=== PATIENT | female | born 1945 | race Caucasian/White ===

== ENCOUNTER 2016-12-25 08:56 | Inpatient (IN) | payer OTHER, MEDICARE ==
[2016-12-18 14:56] LABS: BASOPHILS % (AUTO) 0.6 % (0.0-2.0); EOSINOPHILS # (AUTO) 0.4 K/uL (0.0-0.4); EOSINOPHILS % (AUTO) 5.8 % (0.0-4.0); HEMOGLOBIN 10.7 g/dL (12.0-16.0); LYMPHOCYTES # (AUTO) 2.4 K/uL (1.0-5.5); LYMPHOCYTES % (AUTO) 33.3 % (20.5-51.5); MEAN CORPUSCULAR HEMOGLOBIN 31 pg (27-31); MEAN CORPUSCULAR HGB CONC 34 % (32-36); MEAN CORPUSCULAR VOLUME 92 fL (79.0-98.0); MONOCYTES # (AUTO) 0.6 K/uL (0.0-1.0); MONOCYTES % (AUTO) 7.9 % (1.7-9.3); NEUTROPHILS # (AUTO) 3.8 K/uL (1.8-7.7); NEUTROPHILS % (AUTO) 52.4 % (40.0-70.0); PLATELET COUNT (AUTO) 406 K/uL (130-430); RED CELL DISTRIBUTION WIDTH 12.4 % (9.0-15.0); WHITE BLOOD COUNT (AUTO) 7.2 K/uL (4.8-10.8)
[2016-12-18 14:58] LABS: BILIRUBIN,URINE NEGATIVE (NEGATIVE); BLOOD, URINE NEGATIVE (NEGATIVE); COLOR,URINE YELLOW (YELLOW); GLUCOSE,URINE NEGATIVE (NEGATIVE); KETONES,URINE NEGATIVE (NEGATIVE); LEUKOCYTE ESTERASE ,URINE 1+ (NEGATIVE); NITRITE, URINE NEGATIVE (NEGATIVE); PH,URINE 5.5 (5.0-8.0); PROTEIN URINE NEGATIVE (NEGATIVE); UROBILINOGEN,URINE 0.2 (0.2-1.0)
[2016-12-18 15:06] LABS: ANION GAP 5 (5-15); CALCIUM 9.1 mg/dL (8.4-11.0); CHLORIDE 101 mmol/L (98-107); CREATININE 1.26 mg/dL (0.55-1.30); GLUCOSE 103 mg/dL (70-99); POTASSIUM 3.4 mmol/L (3.5-5.1); SODIUM SERUM 137 mmol/L (136-145); UREA NITROGEN, BLOOD 25 mg/dL (8-21)
[2016-12-18 15:12] LABS: CLARITY/URINE SLIGHTLY HAZY (CLEAR)
[2016-12-18 15:15] LABS: RBC,URINE NONE SEEN /HPF (0-3)
[2016-12-18 15:16] LABS: BACTERIA,URINE FEW /HPF (None Seen); MUCUS,URINE 1+ /LPF (None Seen)
[~2016-12-25] VITALS: Ht 157.5 cm; Wt 65.8 kg
[~2016-12-25 08:56] MED LIST: ACET-1010 PO; ESOM40CA PO; GABA-531 PO; HYDR-1189 PO; HYDR12.585 PO; LIP20 PO; MELO15TA13 PO; METO25TA3 PO
[2016-12-25] MEDS ORDERED: VANCOMYCIN HCL 1 GM/NS PREMIX 250 ML IV ONE (09:15)
[2016-12-25] MEDS ORDERED: CEFAZOLIN 2 GM IVPB PREMIX 50 ML IV ONE ×2 (09:15→14:00)
[2016-12-25] MEDS ORDERED: FERR140T PO (10:07)
[2016-12-25] MEDS ORDERED: POLYMYXIN 500,000/BACIT.10,000 UNITS in NS IRR 1 L IR ONE (11:44)
[2016-12-25] MEDS ORDERED: LR 1,000 ML IV ONE (13:23)
[2016-12-25] MEDS ORDERED: KETOROLAC TROMETHAMINE 30 MG VIAL IM PRN (13:30)
[2016-12-25] MEDS ORDERED: ePHEDrine sulfate 50 MG/ML VIAL IVP PRN (13:30)
[2016-12-25] MEDS ORDERED: DIPHENHYDRAMINE INJ 50 MG/ML VIAL IVP PRN ×2 (13:30→14:30)
[2016-12-25] MEDS ORDERED: NALOXONE HCL 0.4 MG/ML AMP (NARCAN) IVP PRN ×2 (13:30→16:15)
[2016-12-25] MEDS ORDERED: NALBUPHINE HCL 10 MG/ML AMP IVP PRN (13:30)
[2016-12-25] MEDS ORDERED: ONDANSETRON HCL 4 MG/2 ML VIAL IVP PRN ×3 (13:30→14:30)
[2016-12-25] MEDS ORDERED: fentaNYL CITRATE/PF 100 MCG/2 ML AMP IVP PRN (13:30)
[2016-12-25] MEDS ORDERED: MIDAZOLAM HCL 5 MG/5 ML VIAL ONE (14:00)
[2016-12-25] MEDS ORDERED: METOCLOPRAMIDE HCL 10 MG/2 ML VIAL ONE (14:00)
[2016-12-25] MEDS ORDERED: VANCOMYCIN HCL 1000 MG/VIAL IV ONE (14:00)
[2016-12-25] MEDS ORDERED: DEXAMETHASONE SOD PHOSPHATE 4 MG/ML VIAL ONE (14:00)
[2016-12-25] MEDS ORDERED: fentaNYL CITRATE/PF 100 MCG/2 ML AMP ONE (14:00)
[2016-12-25] MEDS ORDERED: PROPOFOL 200MG/ 20ML VIAL (DIPRIVAN) IV ONE (14:00)
[2016-12-25] MEDS ORDERED: MORPHINE SULFATE 10MG/10ML PF AMP ONE (14:00)
[2016-12-25] MEDS ORDERED: SEVOFLURANE 15 MIN GAS INH ONE (14:00)
[2016-12-25] MEDS ORDERED: KETOROLAC TROMETHAMINE 30 MG VIAL ONE (14:00)
[2016-12-25] MEDS ORDERED: LR 1,000 ML IV.SOLN IV ONE (14:00)
[2016-12-25] MEDS ORDERED: ACETAMINOPHEN 500 MG TABLET PO PRN ×2 (14:30→14:45)
[2016-12-25] MEDS ORDERED: MILK OF MAGNESIA 30 ML UDC PO PRN (14:30)
[2016-12-25] MEDS ORDERED: HYDROcodone/ACETAMIN 5-325 MG TAB (NORCO/ VICODIN) PO PRN (14:30)
[2016-12-25 15:15] VITALS: BP 113/67; PULSE 64; RESP 15; TEMP 97.4; O2SAT 98
--- NOTE | 2016-12-25 15:15 | NUR ---
RN OPENING NOTES RECEIVED REPORT FROM RECOVERY ROOM, STATUS POST-OP RIGHT TOTAL HIP REPLACEMENT. DRESSING DRY AND INTACT, ICE PACKS IN PLACE. ABDUCTOR PILLOW PLACED PROPERLY. PT ABLE TO MOVE TOES BILATERALLY, NO S/S OF DEFICIENCIES. EDUCATED PT NOT TO ABDUCT OR ROTATE RIGHT LEG, AND TO MONITOR AND REPORT PAIN. BED IN LOWEST POSITION, BED ALARM ON, AND CALL LIGHT WITHIN REACH.
[2016-12-25 15:29] VITALS: BP 113/67; PULSE 64; RESP 16; TEMP 95.7; O2SAT 98
--- NOTE | 2016-12-25 15:30 | NUR ---
PT EDUCATION EDUCATED ON USE OF INCENTIVE SPIROMETER
--- NOTE | 2016-12-25 15:49 | NUR ---
Consult Order received for a med management with Dr Mittal. Call was placed to his office [phone], spoke with Tucker. Will follow up as needed.
[2016-12-25] MEDS ORDERED: HYDROMORPHONE PCA 10 mg/50 mL IV PRN (16:15)
[2016-12-25 16:24] VITALS: BP 113/67; PULSE 64
[2016-12-25] MEDS: D5/0.45 NS 1,000 ML IV SCH ×2 (16:42→20:56)
--- NOTE | 2016-12-25 16:52 | NUR ---
RN ROUNDS PT RESTING IN BED, FAMILY AT BEDSIDE. PT ABLE TO TOLERATE WATER. BED IN LOWEST POSITION AND CALL LIGHT WITHIN REACH
[2016-12-25] MEDS ORDERED: TRANEXAMIC ACID 1,000 MG in NS 50 ML IV ONE (17:30)
[2016-12-25] MEDS: KETOROLAC TROMETHAMINE 15 MG VIAL IVP SCH (18:19)
--- NOTE | 2016-12-25 18:46 | NUR ---
RN CLOSING NOTE PT RESTING IN BED, TALKING TO A FRIEND AT BEDSIDE. EDUCATED PT TYPEWRITER MECHANIC LIGHT AND HOW TO DIAL THE RN DIRECT EXTENSION WITH THE PHONE. VS STABLE AND PT STATES SHE IS NOT IN PAIN. BED IN LOWEST POSITION, BED ALARM SET AND CALL LIGHT WITHIN REACH
[2016-12-25 20:00] VITALS: BP 107/66; PULSE 84; RESP 18; TEMP 97.5; O2SAT 93
--- NOTE | 2016-12-25 20:00 | NUR ---
Initial PM Note Pt was received lying in bed fully AAO x4. No acute distress noted. Rt hip dressing is clean, dry and intact with neurovascular checks to BLE WNL. IV site in LFA is without any signs of infiltration. Pt was instructed to use IS 10X Q1hr WA and pt verbalized understanding. Pt is able to use IS up to 1500ml volume. Fall and safety precautions are in place. Pt was instructed to call for assistance as needed and pt verbalized understanding. Bed is in the lowest and locked positions. Call light is with pt. Will continue to monitor pt.
[2016-12-25] MEDS: GABAPENTIN 300 MG CAPSULE PO SCH (20:55)
[2016-12-25] MEDS: SENNOSIDES 8.6 MG TABLET PO SCH (20:55)
[2016-12-25] MEDS: DIPHENHYDRAMINE HCL 25 MG CAPSULE PO PRN (20:55)
--- NOTE | 2016-12-25 20:55 | NUR ---
Itching Benadryl 25mg given po per pt's request for c/o itching on abdomen and both feet with relief. No hives or difficulty breathing noted. Skin lotion also applied to pt's abdomen and both feet with good effect.
--- NOTE | 2016-12-25 22:00 | NUR ---
Rounds Pt is resting comfortably in bed. IVF is infusing well and call light is with pt. No c/o pain or discomfort. Rt hip dressing remains dry and intact with ice packs in place.
--- NOTE | 2016-12-26 | NUR ---
Rounds Pt is resting quietly in bed and denies pain or discomfort. DOCUMENT REVIEWER Dilaudid not yet started since it is not needed. Will give scheduled IV Toradol. IVF is infusing well in Lt wrist. Call light is with pt.
[2016-12-26] MEDS: KETOROLAC TROMETHAMINE 15 MG VIAL IVP SCH ×2 (00:03→06:05)
[2016-12-26 00:10] VITALS: BP 101/53; PULSE 80; RESP 18; TEMP 96.5; O2SAT 94
--- NOTE | 2016-12-26 02:00 | NUR ---
Rounds Pt is sleeping without any distress noted. IVF is infusing well and call light is with pt.
--- NOTE | 2016-12-26 04:00 | NUR ---
Rounds Pt is sleeping comfortably in bed. Call light is with pt.
[2016-12-26] MEDS: D5/0.45 NS 1,000 ML IV SCH ×2 (04:39→11:46)
--- NOTE | 2016-12-26 05:30 | NUR ---
Rounds Pt is sleeping comfortably in bed. IVF is infusing well.
[2016-12-26 06:17] VITALS: BP 111/52; PULSE 67; RESP 18; TEMP 96.8; O2SAT 98
[2016-12-26 06:32] LABS: ANION GAP 4 (5-15); CALCIUM 8.2 mg/dL (8.4-11.0); CHLORIDE 102 mmol/L (98-107); CREATININE 0.85 mg/dL (0.55-1.30); GLUCOSE 158 mg/dL (70-99); POTASSIUM 3.1 mmol/L (3.5-5.1); SODIUM SERUM 136 mmol/L (136-145); UREA NITROGEN, BLOOD 14 mg/dL (8-21)
[2016-12-26 06:43] LABS: EOSINOPHILS % (AUTO) 0.1 % (0.0-4.0)
--- NOTE | 2016-12-26 07:00 | NUR ---
Closing Note Pt is resting comfortably in bed. All pt's needs were attended to. No fall or injury noted this shift. Will endorse to day shift nurse.
[2016-12-26 07:03] LABS: BASOPHILS % (AUTO) 0.5 % (0.0-2.0); HEMATOCRIT 23.3 % (36-48); LYMPHOCYTES # (AUTO) 0.8 K/uL (1.0-5.5); LYMPHOCYTES % (AUTO) 10.2 % (20.5-51.5); MEAN CORPUSCULAR HEMOGLOBIN 31 pg (27-31); MEAN CORPUSCULAR HGB CONC 34 % (32-36); MEAN CORPUSCULAR VOLUME 90 fL (79.0-98.0); MONOCYTES # (AUTO) 0.7 K/uL (0.0-1.0); NEUTROPHILS # (AUTO) 6.4 K/uL (1.8-7.7); NEUTROPHILS % (AUTO) 80.2 % (40.0-70.0); PLATELET COUNT (AUTO) 329 K/uL (130-430); RED BLOOD CELL COUNT(AUTO) 2.58 MIL/uL (4.2-6.2); RED CELL DISTRIBUTION WIDTH 12.9 % (9.0-15.0); WHITE BLOOD COUNT (AUTO) 7.9 K/uL (4.8-10.8)
--- NOTE | 2016-12-26 07:30 | NUR ---
RN OPENING NOTES PT AWAKE AND A/O X4. PT STATED SHE IS FREE OF PAIN AND COMFORTABLE. VS STABLE. BED IN LOWEST POSITION, BED ALARM SET AND CALL LIGHT WITHIN REACH
[2016-12-26 08:00] VITALS: BP 102/78; PULSE 77; RESP 17; TEMP 97.7; O2SAT 98
[2016-12-26] MEDS: HYDROCHLOROTHIAZIDE 12.5 MG CAPSULE (HCTZ) PO SCH (08:50)
[2016-12-26] MEDS: ATORVASTATIN 20 MG TABLET PO SCH (08:51)
[2016-12-26] MEDS: MULTIVITAMINS TAB 1 TABLET PO SCH (08:51)
[2016-12-26] MEDS: GABAPENTIN 300 MG CAPSULE PO SCH ×2 (08:51→20:38)
[2016-12-26] MEDS: PANTOPRAZOLE SODIUM 40 MG TAB PO SCH (08:52)
[2016-12-26] MEDS: FERROUS SULFATE 140 MG TABLET.ER PO SCH (08:52)
[2016-12-26] MEDS: ASCORBIC ACID 500 MG TABLET PO SCH ×2 (08:53→20:38)
[2016-12-26] MEDS ORDERED: METOPROLOL SUCCINATE 25 MG TAB.SR.24H (TOPROL XL) PO SCH (09:00)
[2016-12-26] MEDS: HYDROcodone/ACETAMIN 10-325 MG TAB PO PRN ×3 (09:02→18:42)
--- NOTE | 2016-12-26 10:00 | NUR ---
RN ROUNDS PT WAS ASSISTED TO CHAIR DURING HER PHYSICAL THERAPY SESSION. PT STATED HER PAIN IS TOLERABLE AND SHE IS COMFORTABLE. DAUGHTER AT BEDSIDE. CALL LIGHT WITHIN REACH
[2016-12-26] MEDS ORDERED: POTASSIUM CHLORIDE 40 MEQ in NS 250 ML IV ONE (10:15)
[2016-12-26] MEDS: RIVAROXABAN 10 MG TABLET PO SCH (10:40)
[2016-12-26 12:00] VITALS: BP 119/56; PULSE 74; RESP 18; TEMP 97.7; O2SAT 96
--- NOTE | 2016-12-26 12:06 | NUR ---
RN ROUNDS PT SITTING IN CHAIR AND STATED HER PAIN IS TOLERABLE AND SHE IS COMFORTABLE. AT BEDSIDE. CALL LIGHT WITHIN REACH
--- NOTE | 2016-12-26 14:11 | NUR ---
Assisted pt to the bathroom, placed commode above toilet for elevation. Pt tolerating well.
[2016-12-26 16:00] VITALS: BP 111/65; PULSE 76; RESP 21; TEMP 97.7; O2SAT 97
--- NOTE | 2016-12-26 16:00 | NUR ---
Rounds Assisted pt to the bathroom, tolerated well. Pt back in bed and abductor pillow in place. Family at bedside. Pt continues to infuse IVF, Rody complete. Call light in reach. Will cont to monitor. Encouraged patient to call for assistance when getting up. She stated she will.
--- NOTE | 2016-12-26 18:07 | NUR ---
RN CLOSING NOTE PT SITTING IN BED, EATING DINNER. HER DAUGHTER IS PRESENT AT BED SIDE. PT AWARE OF SCHEDULED BLOOD PRODUCT REPLACEMENT AT 1900 AND PAPERWORK AND CONSENT COMPLETED. PT STATES SHE IS COMFORTABLE WITH NO PAIN. BED IN LOWEST POSITION, BED ALARM SET, AND CALL LIGHT WITHIN REACH
--- NOTE | 2016-12-26 19:50 | NUR ---
Initial Note Patient in bed at this time resting, respirations even and unlabored. Patient is alert and oriented. No acute distress noted at this time. Patient states pain is being well managed with [place] at this time. IV site patent with no signs or symptoms of infiltration noted at this time. Educated patient on incentive spirometer, patient verbalized understanding. Educated patent on using 10 times per hour while awake. Patient has burton with yellow urine draining to gravity. Call light in hand. Fall and safety precautions in place. Will continue to monitor.
[2016-12-26 20:00] VITALS: BP 115/45; PULSE 80; RESP 16; TEMP 98; O2SAT 96
[2016-12-26] MEDS: DIPHENHYDRAMINE HCL 25 MG CAPSULE PO PRN (20:38)
[2016-12-26] MEDS: SENNOSIDES 8.6 MG TABLET PO SCH (20:38)
--- NOTE | 2016-12-26 21:56 | NUR ---
BT INITIATION: Consent signed per Patient agreeing to administration of blood. Blood has been type and crossmatched. Blood sent from blood bank. Information on unit of blood checked against patient wristband at bedside by two nurses. All information matches. Patient or responsible libertarian informed of potential complications associated with blood transfusion. Informed of possible transfusion reaction symptoms. Aware of need to notify nurse at once of itching, shortness of breath, flushing, feeling of impending doom, or other symptoms not previously present. Vital signs taken within 5 minutes prior to initiation of transfusion. RN will remain with patient for first 15 minutes of transfusion at which time vital signs will be re-assessed.
--- NOTE | 2016-12-26 22:11 | NUR ---
15 into blood transfusion 15 mins into blood transfusion patient denies any symptoms of flank pain, shortness of breath , itching, or flushed feeling. Patients vitals are stable at this time. Patient shows no symptoms of reaction. Iv site patent with no signs or symptoms of infiltration noted. Call light in hand. Fall and safety precautions in place. Will continue to monitor.
--- NOTE | 2016-12-26 23:55 | NUR ---
RN ROUNDS Patient in bed at this time resting with eyes closed. Patient in no apparent pain or discomfort at this time, no facial grimacing noted. Blood transfusion still infusing and patient continues to tolerate well. Call light in hand. Fall and safety precautions in place. Will continue to monitor.
[2016-12-27] MEDS: HYDROcodone/ACETAMIN 10-325 MG TAB PO PRN ×5 (01:03→20:35)
--- NOTE | 2016-12-27 01:09 | NUR ---
Post Blood Transfusion Blood transfusion ended. Patient tolerated well. Patient showed no signs or symptoms of adverse reaction to blood. Vital signs remain stable. Patient C?O pain on the effected hip. Administered pain medication as ordered, helped patient reposition. Patient tolerated well. Call light in hand. Fall and safety precautions in place. Will continue to monitor.
[2016-12-27] MEDS: D5/0.45 NS 1,000 ML IV SCH ×2 (01:36→07:26)
--- NOTE | 2016-12-27 02:59 | NUR ---
RN ROUNDS Patient in bed at this time resting with eyes closed. Respirations even and unlabored. No acute distress noted at this time. Patient denies any pain or discomfort at this time. Call light in hand. Fall and safety precautions in place. Will continue to monitor.
--- NOTE | 2016-12-27 04:48 | NUR ---
RN ROUNDS Patient in bed at this time resting, respirations even and unlabored. No acute distress noted at this time. Patient in no apparent pain or discomfort at this time, no facial grimacing noted. Call light in hand. Fall and safety precautions in place. Will continue to monitor.
[2016-12-27 06:13] VITALS: BP 118/50; PULSE 70; RESP 18; TEMP 97.9; O2SAT 93
[2016-12-27 06:27] LABS: ANION GAP 2 (5-15); CALCIUM 7.9 mg/dL (8.4-11.0); CHLORIDE 107 mmol/L (98-107); CREATININE 0.91 mg/dL (0.55-1.30); GLUCOSE 109 mg/dL (70-99); POTASSIUM 3.4 mmol/L (3.5-5.1); SODIUM SERUM 139 mmol/L (136-145)
--- NOTE | 2016-12-27 06:55 | NUR ---
Closing Note Patient in bed at this time resting. Respirations even and unlabored. No acute distress noted at this time. Discontinued Ibanez, catheter tip in tact, patient tolerated well. All due meds given, all needs met. Call light in hand. Fall and safety precautions in place. Will continue to monitor. Addendum: 12/27/16 at 0657 by Charity Hernandez RN Will endorse to day shift nurse.
[2016-12-27 07:01] LABS: BASOPHILS % (AUTO) 0.5 % (0.0-2.0); EOSINOPHILS # (AUTO) 0.3 K/uL (0.0-0.4); EOSINOPHILS % (AUTO) 3.8 % (0.0-4.0); HEMATOCRIT 26.1 % (36-48); HEMOGLOBIN 8.7 g/dL (12.0-16.0); LYMPHOCYTES # (AUTO) 1.5 K/uL (1.0-5.5); LYMPHOCYTES % (AUTO) 20.2 % (20.5-51.5); MEAN CORPUSCULAR HEMOGLOBIN 31 pg (27-31); MEAN CORPUSCULAR HGB CONC 33 % (32-36); MEAN CORPUSCULAR VOLUME 92 fL (79.0-98.0); MONOCYTES # (AUTO) 0.8 K/uL (0.0-1.0); MONOCYTES % (AUTO) 10.1 % (1.7-9.3); NEUTROPHILS % (AUTO) 65.4 % (40.0-70.0); PLATELET COUNT (AUTO) 315 K/uL (130-430); RED BLOOD CELL COUNT(AUTO) 2.85 MIL/uL (4.2-6.2); RED CELL DISTRIBUTION WIDTH 12.9 % (9.0-15.0); WHITE BLOOD COUNT (AUTO) 7.6 K/uL (4.8-10.8)
[2016-12-27 07:02] LABS: UREA NITROGEN, BLOOD 10 mg/dL (8-21)
[2016-12-27 08:00] VITALS: BP 118/66; PULSE 77; RESP 18; TEMP 97.8; O2SAT 94
--- NOTE | 2016-12-27 08:00 | NUR ---
Initial Note Patient A/O x 4. Respirations even and unlabored, denies difficulty breathing at this time. IV access patent. Reviewed hip precautions, patient acknowledged understanding. Encouraged use of incentive spirometer, patient stated she will use IS correctly. No active bleeding noted to right hip dressing. Use of call light reviewed with patient. Fall and safety precautions in place.
--- NOTE | 2016-12-27 08:24 | NUR ---
Notes Informed case management of Dr. Kuhn's order to be called by case management.
--- NOTE | 2016-12-27 08:45 | NUR ---
DISCHARGE PLANNING DC planning to [facility]. Faxed referral Ext:[phone] [phone]. Will follow up.
[2016-12-27] MEDS: FERROUS SULFATE 140 MG TABLET.ER PO SCH ×2 (09:00→09:48)
[2016-12-27] MEDS ORDERED: POTASSIUM CHLORIDE 20 MEQ TAB.PRT.SR PO ONE (09:30)
[2016-12-27] MEDS: PANTOPRAZOLE SODIUM 40 MG TAB PO SCH (09:47)
[2016-12-27] MEDS: ATORVASTATIN 20 MG TABLET PO SCH (09:47)
[2016-12-27] MEDS: ASCORBIC ACID 500 MG TABLET PO SCH ×2 (09:48→20:35)
[2016-12-27] MEDS: RIVAROXABAN 10 MG TABLET PO SCH (09:48)
[2016-12-27] MEDS: MULTIVITAMINS TAB 1 TABLET PO SCH (09:48)
[2016-12-27] MEDS: GABAPENTIN 300 MG CAPSULE PO SCH ×2 (09:48→20:35)
[2016-12-27] MEDS: HYDROCHLOROTHIAZIDE 12.5 MG CAPSULE (HCTZ) PO SCH (09:49)
--- NOTE | 2016-12-27 10:27 | NUR ---
Nutrition Update Zen Scale 17 noted. Pt admitted for unilateral primary osteoarthritis R hip. Diet: regular BMI: 26.5 kg/m2 RD to follow per nutrition care standards.
[2016-12-27] MEDS ORDERED: COMMUNICATION ORDER XX ONE (11:30)
[2016-12-27 13:33] VITALS: BP 119/58; PULSE 71; RESP 17; TEMP 98.6; O2SAT 99
--- NOTE | 2016-12-27 13:51 | NUR ---
Notes Patient ambulating in hallway with use of front wheel walker and PT assisting. Gait steady. no acute distress noted.
--- NOTE | 2016-12-27 14:41 | NUR ---
Notes Dr. Kuhn has seen patient and changed dressing. No new orders given.
--- NOTE | 2016-12-27 15:00 | NUR ---
PHYSICAL THERAPY CO-SIGN The Physical Therapy Progress Notes documented by Fishing Worker have been reviewed. 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 Plan: continue PT as per plan of care. Addendum: 12/27/16 at 1552 by Nereida Aj PT Amended: Links added.
[2016-12-27 15:30] VITALS: BP 102/72; PULSE 79; RESP 16; TEMP 97.1; O2SAT 96
--- NOTE | 2016-12-27 18:06 | NUR ---
Closing Notes Patient needs met throughout shift. Complaints of pain addressed per MD orders. No signs of bleeding or infection noted. Correct use of incentive spirometer demonstrated. Hip precautions maintained, abductor pillow on while in bed. Denied numbness and tingling to bilateral lower extremities throughout shift. Will continue to monitor until patient care is endorsed to oncoming shift nurse.
[2016-12-27 20:00] VITALS: BP 125/76; PULSE 75; RESP 18; TEMP 97.6; O2SAT 97
--- NOTE | 2016-12-27 20:00 | NUR ---
ROUNDS PATIENT IN BED, WATCHING TV, VITALS STABLE, DENIES ANY PAIN AT THIS TIME. ASSESSMENT DONE AND DOCUMENTED. SEE FLOWSHEET. FAMILY AT THE BEDSIDE. NEEDS ATTENDED TO. SAFETY AND FALL PRECAUTION MEASURES IN PLACED. BED IN LOW AND LOCKED POSITION. CALL LIGHT PLACED WITH PATIENT.
[2016-12-27] MEDS: SENNOSIDES 8.6 MG TABLET PO SCH (20:37)
[2016-12-27] MEDS ORDERED: METOPROLOL SUCCINATE 25 MG TAB.SR.24H (TOPROL XL) PO SCH (21:00)
--- NOTE | 2016-12-27 21:10 | NUR ---
MEDICATION DUE MEDICATIONS GIVEN SCHEDULED, TOLERATED WELL. WILL CONTINUE TO MONITOR.
--- NOTE | 2016-12-28 | NUR ---
PATIENT RESTING: Patient resting quietly. No acute distress noted. Vital signs within normal range.
--- NOTE | 2016-12-28 02:00 | NUR ---
ROUNDS ASLEEP, NO SOB NOTED, WILL CONTINUE TO MONITOR.
--- NOTE | 2016-12-28 04:00 | NUR ---
PATIENT RESTING: Patient resting quietly. No acute distress noted. Vital signs within normal range.
[2016-12-28 04:26] VITALS: BP 130/71; PULSE 74; RESP 16; TEMP 97.2; O2SAT 99
[2016-12-28] MEDS: HYDROcodone/ACETAMIN 10-325 MG TAB PO PRN ×3 (05:23→17:13)
[2016-12-28 06:40] LABS: BASOPHILS % (AUTO) 0.5 % (0.0-2.0); EOSINOPHILS # (AUTO) 0.3 K/uL (0.0-0.4); EOSINOPHILS % (AUTO) 3.9 % (0.0-4.0); HEMATOCRIT 27.8 % (36-48); HEMOGLOBIN 9.1 g/dL (12.0-16.0); LYMPHOCYTES # (AUTO) 1.2 K/uL (1.0-5.5); LYMPHOCYTES % (AUTO) 16.9 % (20.5-51.5); MEAN CORPUSCULAR HEMOGLOBIN 30 pg (27-31); MEAN CORPUSCULAR HGB CONC 33 % (32-36); MEAN CORPUSCULAR VOLUME 92 fL (79.0-98.0); MONOCYTES # (AUTO) 0.7 K/uL (0.0-1.0); MONOCYTES % (AUTO) 9.9 % (1.7-9.3); NEUTROPHILS # (AUTO) 5.1 K/uL (1.8-7.7); NEUTROPHILS % (AUTO) 68.8 % (40.0-70.0); PLATELET COUNT (AUTO) 354 K/uL (130-430); RED BLOOD CELL COUNT(AUTO) 3.03 MIL/uL (4.2-6.2); RED CELL DISTRIBUTION WIDTH 12.5 % (9.0-15.0); WHITE BLOOD COUNT (AUTO) 7.3 K/uL (4.8-10.8)
--- NOTE | 2016-12-28 06:50 | NUR ---
CLOSING NOTES PATIENT AWAKE, VITALS STABLE, ALL NEEDS ATTENDED TO. CALL LIGHT PLACED WITHIN REACH.
[2016-12-28 07:00] LABS: ANION GAP 5 (5-15); CALCIUM 8.2 mg/dL (8.4-11.0); CHLORIDE 104 mmol/L (98-107); CREATININE 0.89 mg/dL (0.55-1.30); GLUCOSE 101 mg/dL (70-99); POTASSIUM 3.8 mmol/L (3.5-5.1); SODIUM SERUM 138 mmol/L (136-145); UREA NITROGEN, BLOOD 11 mg/dL (8-21)
--- NOTE | 2016-12-28 08:00 | NUR ---
Patient A/O x 4. No s/s of distress noted. IV access patent. Reviewed hip precautions, patient acknowledged understanding. Incentive spirometer at bedside, patient stated she will use IS correctly. SR on monitor. No active bleeding noted to right hip dressing. Call light in place, instructed patient to use it for needs, bed at lowest position, will continue to monitor.
[2016-12-28] MEDS: PANTOPRAZOLE SODIUM 40 MG TAB PO SCH (08:56)
[2016-12-28] MEDS: ASCORBIC ACID 500 MG TABLET PO SCH (08:56)
[2016-12-28] MEDS: RIVAROXABAN 10 MG TABLET PO SCH (08:56)
[2016-12-28] MEDS: HYDROCHLOROTHIAZIDE 12.5 MG CAPSULE (HCTZ) PO SCH (08:56)
[2016-12-28] MEDS: MULTIVITAMINS TAB 1 TABLET PO SCH (08:57)
[2016-12-28] MEDS: ATORVASTATIN 20 MG TABLET PO SCH (08:57)
[2016-12-28] MEDS: GABAPENTIN 300 MG CAPSULE PO SCH (08:57)
[2016-12-28] MEDS: FERROUS SULFATE 140 MG TABLET.ER PO SCH (08:58)
--- NOTE | 2016-12-28 09:45 | NUR ---
PATIENT IS TAKEN TO PHYSICAL THERAPY WITH PT. PATIENT TOLERATED WELL, NO SIGNS OF DISTRESS NOTED.
--- NOTE | 2016-12-28 11:45 | NUR ---
DC PLANNING: RECEIVED A DC ORDER FROM DR. K[facility] BED AVAIL[facility] AFTER 1800, PLS GIVE REPORT TO RN TEL# [phone]. PT WILL BE FOLLOWED BY DR. SEVILLA. ARRANGED TRANSPORTATION FOR [address] [facility] TEL# . PACKET AT THE NURSE'S STATION, DEJA PHAN INFORMED. PATIENT AGREEABLE TO THE TRANSFER.
[2016-12-28 12:00] VITALS: BP 118/59; PULSE 69
[2016-12-28] MEDS ORDERED: RIVA10TA PO (12:12)
[2016-12-28 12:51] VITALS: BP 118/59; PULSE 69; RESP 16; TEMP 97.2; O2SAT 94
--- NOTE | 2016-12-28 14:00 | NUR ---
PATIENT'S FAMILY AT BEDSIDE. CALL LIGHT IN PLACE, WILL CONTINUE TO MONITOR.
--- NOTE | 2016-12-28 16:00 | NUR ---
PHYSICAL THERAPY CO-SIGN The Physical Therapy Progress Notes documented by Customer Success Advocate have been reviewed. I CONCUR W/PEDIATRIC SURGEON NOTE Reviewed/Co-Signed by: Ni Curry PT Documentation Done by: JD TIJERINA PTA Addendum: 12/30/16 at 0829 by Ni Curry PT Amended: Links added.
--- NOTE | 2016-12-28 16:00 | NUR ---
PATIENT IS ASLEEP, SR ON MONITOR, NO SIGNS OF DISTRESS NOTED.
[2016-12-28 16:55] VITALS: BP 113/62; PULSE 68; RESP 16; TEMP 97.8; O2SAT 97
[2016-12-28 17:44] VITALS: BP 126/73; PULSE 76; RESP 17; TEMP 96; O2SAT 98
--- NOTE | 2016-12-28 19:21 | NUR ---
Transportation Follow-up called [facility] ambulance, dialed . s/w Deandre, stated that transport should arrive within a few minutes.
--- NOTE | 2016-12-28 20:06 | NUR ---
NOTES PATIENT DISCHARGED TO [facility] ORDERED VIA AMBULANCE WITH STABLE VITAL SIGNS. DENIES ANY PAIN AND DISCOMFORT AT THIS TIME. TRANSITION OF CARE INSTRUCTIONS GIVEN BY A.M. NURSE TO PATIENT AND FAMILY.
== END 2016-12-28 20:05 | DRG 470 ==
LOC: SMU 08:56 → STU 15:30
PROVIDERS: ADMIT Orthopaedic Surgery; ATTEND Orthopaedic Surgery
PROC: 0SR90JZ Replacement of Right Hip Joint with Synthetic Substitute, Open Approach (ICD-10-PCS; principal; 2016-12-25 12:00)
PROC: 30233N1 Transfusion of Nonautologous Red Blood Cells into Peripheral Vein, Percutaneous Approach (ICD-10-PCS; 2016-12-26)
DX: M16.11 Unilateral primary osteoarthritis, right hip (principal); D62 Acute posthemorrhagic anemia; M65.9 Synovitis and tenosynovitis, unspecified; I10 Essential (primary) hypertension; E78.00 Pure hypercholesterolemia, unspecified; E78.5 Hyperlipidemia, unspecified; G62.9 Polyneuropathy, unspecified; K21.9 Gastro-esophageal reflux disease without esophagitis; S93.501A Unspecified sprain of right great toe, initial encounter; M19.071 Primary osteoarthritis, right ankle and foot; M48.06 Spinal stenosis, lumbar region; S33.5XXA Sprain of ligaments of lumbar spine, initial encounter; Z88.1 Allergy status to other antibiotic agents; Z79.1 Long term (current) use of non-steroidal anti-inflammatories (NSAID); Z79.899 Other long term (current) drug therapy
CPT/HCPCS: 36415; 71020-TC; 72170-TC; 73510-TC; 80048; 81000-TC; 85025; 86886; 86890; 86900; 86901; 86920; 87081; 87086; 88304; 88311; 97110-GP; 97116-GP; 97530-GP; C1776; J0690; J1100; J1885; J2250; J2274; J2704; J2765; J3010; J3370; J3480; J3490; J7040; J7050; J7120; Q0163

== ENCOUNTER 2017-03-24 07:29 | Outpatient (CLI) | payer OTHER, MEDICARE ==
[~2017-03-24 07:29] MED LIST changes: +FERR140T PO; -MELO15TA13 PO; +RIVA10TA PO
[2017-03-24 08:07] LABS: ALANINE AMINOTRANSFERASE 23 U/L (12-78); ASPARTATE AMINOTRANSFERASE 18 U/L (10-37); CALCIUM 9.3 mg/dL (8.4-11.0); CHLORIDE 101 mmol/L (98-107); CHOLESTEROL 194 mg/dL (<200); CREATININE 0.99 mg/dL (0.55-1.30); GLUCOSE 97 mg/dL (70-99); HDL CHOLESTEROL 55 mg/dL (>55); LDL CHOLESTEROL 104 mg/dL (<100); TOTAL BILIRUBIN 0.4 mg/dL (0.0-1.0); TOTAL PROTEIN, SERUM 7.3 g/dL (6.4-8.3); TRIGLYCERIDES 186 mg/dL (30-150); UREA NITROGEN, BLOOD 16 mg/dL (8-21)
[2017-03-24 09:03] LABS: ANION GAP 6 (5-15); SODIUM SERUM 139 mmol/L (136-145)
== END 2017-03-24 20:50 | disposition home or self-care (01) ==
LOC: SLB 07:29
PROVIDERS: ATTEND Internal Medicine
DX: I10 Essential (primary) hypertension (principal); E78.00 Pure hypercholesterolemia, unspecified; R73.9 Hyperglycemia, unspecified
CPT/HCPCS: 36415; 80053; 80061; 83036

== ENCOUNTER 2017-07-10 15:41 | Outpatient (CLI) | payer OTHER, MEDICARE ==
[2017-07-10 16:58] LABS: BILIRUBIN,URINE NEGATIVE (NEGATIVE); BLOOD, URINE NEGATIVE (NEGATIVE); CLARITY/URINE CLEAR (CLEAR); COLOR,URINE YELLOW (YELLOW); GLUCOSE,URINE NEGATIVE (NEGATIVE); KETONES,URINE NEGATIVE (NEGATIVE); LEUKOCYTE ESTERASE ,URINE NEGATIVE (NEGATIVE); NITRITE, URINE NEGATIVE (NEGATIVE); PH,URINE 5.5 (5.0-8.0); PROTEIN URINE NEGATIVE (NEGATIVE); UROBILINOGEN,URINE 0.2 (0.2-1.0)
== END 2017-07-10 19:22 | disposition home or self-care (01) ==
LOC: SLB 15:41
PROVIDERS: ATTEND Orthopaedic Surgery
DX: Z79.1 Long term (current) use of non-steroidal anti-inflammatories (NSAID) (principal)
CPT/HCPCS: 36415; 81003; 82565-TC; 83051; 84450-TC; 84460-TC

== ENCOUNTER 2017-12-31 08:05 | Outpatient (CLI) | payer OTHER, MEDICARE ==
[2017-12-31 09:42] LABS: ANION GAP 5 (5-15); CALCIUM 9.4 mg/dL (8.4-11.0); CHLORIDE 104 mmol/L (98-107); CREATININE 0.95 mg/dL (0.55-1.30); GLUCOSE 104 mg/dL (70-99); SODIUM SERUM 139 mmol/L (136-145); UREA NITROGEN, BLOOD 21 mg/dL (8-21)
[2017-12-31 09:45] LABS: ALANINE AMINOTRANSFERASE 25 U/L (12-78); ASPARTATE AMINOTRANSFERASE 16 U/L (10-37); CHOLESTEROL 184 mg/dL (<200); HDL CHOLESTEROL 54 mg/dL (>55); LDL CHOLESTEROL 105 mg/dL (<100); TOTAL BILIRUBIN 0.5 mg/dL (0.0-1.0); TRIGLYCERIDES 112 mg/dL (30-150)
== END 2017-12-31 20:57 | disposition home or self-care (01) ==
LOC: SLB 08:05
PROVIDERS: ATTEND Internal Medicine
DX: E78.00 Pure hypercholesterolemia, unspecified (principal); I10 Essential (primary) hypertension; R31.29 Other microscopic hematuria; R73.9 Hyperglycemia, unspecified
CPT/HCPCS: 36415; 80053; 80061; 83036

== ENCOUNTER 2018-05-11 14:28 | Outpatient (CLI) | payer OTHER, MEDICARE ==
[~2018-05-11 14:28] MED LIST changes: -ACET-1010 PO; +ACET-2634 PO
[2018-05-11 15:07] LABS: BILIRUBIN,URINE NEGATIVE (NEGATIVE); BLOOD, URINE NEGATIVE (NEGATIVE); CLARITY/URINE CLEAR (CLEAR); COLOR,URINE YELLOW (YELLOW); GLUCOSE,URINE NEGATIVE (NEGATIVE); KETONES,URINE NEGATIVE (NEGATIVE); LEUKOCYTE ESTERASE ,URINE NEGATIVE (NEGATIVE); NITRITE, URINE NEGATIVE (NEGATIVE); PH,URINE 6.5 (5.0-8.0); PROTEIN URINE NEGATIVE (NEGATIVE); UROBILINOGEN,URINE 0.2 (0.2-1.0)
[2018-05-11 15:45] LABS: CREATININE 1.11 mg/dL (0.55-1.30)
== END 2018-05-11 21:13 | disposition home or self-care (01) ==
LOC: SLB 14:28
PROVIDERS: ATTEND Orthopaedic Surgery
DX: I10 Essential (primary) hypertension (principal); E78.00 Pure hypercholesterolemia, unspecified; Z79.1 Long term (current) use of non-steroidal anti-inflammatories (NSAID); Z79.899 Other long term (current) drug therapy; Z88.8 Allergy status to other drugs, medicaments and biological substances
CPT/HCPCS: 36415; 81003; 82565-TC; 83051; 84450-TC; 84460-TC

== ENCOUNTER 2019-01-01 09:51 | Outpatient (CLI) | payer OTHER, MEDICARE ==
[~2019-01-01 09:51] MED LIST changes: -FERR140T PO; +FERR140T2 PO
[2019-01-01 10:36] LABS: BILIRUBIN,URINE NEGATIVE (NEGATIVE); BLOOD, URINE NEGATIVE (NEGATIVE); CLARITY/URINE CLEAR (CLEAR); COLOR,URINE YELLOW (YELLOW); GLUCOSE,URINE NEGATIVE (NEGATIVE); KETONES,URINE NEGATIVE (NEGATIVE); LEUKOCYTE ESTERASE ,URINE 1+ (NEGATIVE); NITRITE, URINE NEGATIVE (NEGATIVE); PROTEIN URINE NEGATIVE (NEGATIVE); UROBILINOGEN,URINE 0.2 (0.2-1.0)
[2019-01-01 10:53] LABS: BACTERIA,URINE FEW /HPF (None Seen); RBC,URINE 0-3 /HPF (0-3)
[2019-01-01 11:00] LABS: CREATININE 0.93 mg/dL (0.55-1.30)
== END 2019-01-01 21:14 | disposition home or self-care (01) ==
LOC: SLB 09:51
PROVIDERS: ATTEND Orthopaedic Surgery
DX: Z79.1 Long term (current) use of non-steroidal anti-inflammatories (NSAID) (principal)
CPT/HCPCS: 36415; 81000-TC; 82565-TC; 83051; 84450-TC; 84460-TC

== ENCOUNTER 2019-03-13 09:36 | Outpatient (CLI) | payer OTHER, MEDICARE ==
[2019-03-13 11:20] LABS: ANION GAP 9 (5-15); CALCIUM 9.9 mg/dL (8.4-11.0); CHLORIDE 102 mmol/L (98-107); CHOLESTEROL 178 mg/dL (<200); CREATININE 1.01 mg/dL (0.55-1.30); GLUCOSE 104 mg/dL (70-99); HDL CHOLESTEROL 48 mg/dL (>55); LDL CHOLESTEROL 111 mg/dL (<100); SODIUM SERUM 138 mmol/L (136-145); TRIGLYCERIDES 107 mg/dL (30-150); UREA NITROGEN, BLOOD 26 mg/dL (8-21)
== END 2019-03-13 17:21 | disposition home or self-care (01) ==
LOC: SLB 09:36
PROVIDERS: ATTEND Internal Medicine
DX: E78.00 Pure hypercholesterolemia, unspecified (principal); R73.9 Hyperglycemia, unspecified; I10 Essential (primary) hypertension
CPT/HCPCS: 36415; 80048; 80061; 83036

== ENCOUNTER 2019-07-01 10:48 | Outpatient (CLI) | payer OTHER, MEDICARE ==
[2019-07-01 12:02] LABS: BILIRUBIN,URINE NEGATIVE (NEGATIVE); BLOOD, URINE NEGATIVE (NEGATIVE); CLARITY/URINE CLEAR (CLEAR); COLOR,URINE YELLOW (YELLOW); GLUCOSE,URINE NEGATIVE (NEGATIVE); KETONES,URINE NEGATIVE (NEGATIVE); LEUKOCYTE ESTERASE ,URINE 2+ (NEGATIVE); NITRITE, URINE NEGATIVE (NEGATIVE); PROTEIN URINE NEGATIVE (NEGATIVE); UROBILINOGEN,URINE 0.2 (0.2-1.0)
[2019-07-01 12:19] LABS: BACTERIA,URINE FEW /HPF (None Seen); RBC,URINE 0-3 /HPF (0-3)
[2019-07-01 12:20] LABS: COARSE GRANULAR CASTS,URINE 0-10 /LPF (None Seen)
== END 2019-07-02 08:41 | disposition home or self-care (01) ==
LOC: SLB 10:48
PROVIDERS: ATTEND Orthopaedic Surgery
DX: Z51.81 Encounter for therapeutic drug level monitoring (principal); Z79.1 Long term (current) use of non-steroidal anti-inflammatories (NSAID)
CPT/HCPCS: 36415; 81000-TC; 82565-TC; 83051; 84450-TC; 84460-TC

== ENCOUNTER → 2019-09-10 | Outpatient (CLI) | payer OTHER, MEDICARE ==
[2019-09-13 19:40] LABS: BILIRUBIN,URINE NEGATIVE (NEGATIVE); BLOOD, URINE NEGATIVE (NEGATIVE); CLARITY/URINE CLEAR (CLEAR); COLOR,URINE YELLOW (YELLOW); GLUCOSE,URINE NEGATIVE (NEGATIVE); KETONES,URINE NEGATIVE (NEGATIVE); PH,URINE 6.5 (5.0-8.0); PROTEIN URINE NEGATIVE (NEGATIVE)
[2019-09-13 19:41] LABS: LEUKOCYTE ESTERASE ,URINE 2+ (NEGATIVE); NITRITE, URINE NEGATIVE (NEGATIVE); UROBILINOGEN,URINE 0.2 (0.2-1.0)
[2019-09-13 19:44] LABS: BACTERIA,URINE FEW /HPF (None Seen); MUCUS,URINE 1+ /LPF (None Seen); RBC,URINE 0-3 /HPF (0-3)
[2019-09-13 19:45] LABS: ANION GAP 6 (5-15); CHLORIDE 97 mmol/L (98-107); CREATININE 1.04 mg/dL (0.55-1.30); GLUCOSE 100 mg/dL (70-99); POTASSIUM 3.8 mmol/L (3.5-5.1); SODIUM SERUM 132 mmol/L (136-145); UREA NITROGEN, BLOOD 23 mg/dL (8-21)
[2019-09-13 19:46] LABS: ALANINE AMINOTRANSFERASE 35 U/L (12-78); ALBUMIN 4.2 g/dL (3.4-4.8); ASPARTATE AMINOTRANSFERASE 19 U/L (10-37); CHOLESTEROL 214 mg/dL (<200); HDL CHOLESTEROL 58 mg/dL (>55); TOTAL BILIRUBIN 0.5 mg/dL (0.0-1.0); TRIGLYCERIDES 125 mg/dL (30-150)
[2019-09-13 19:47] LABS: LDL CHOLESTEROL 132 mg/dL (<100)
[2019-09-13 19:48] LABS: BASOPHILS % (AUTO) 0.8 % (0.0-2.0); EOSINOPHILS # (AUTO) 0.2 K/uL (0.0-0.4); HEMATOCRIT 39.2 % (36-48); HEMOGLOBIN 13.2 g/dL (12.0-16.0); LYMPHOCYTES % (AUTO) 35.9 % (20.5-51.5); MEAN CORPUSCULAR HEMOGLOBIN 31 pg (27-31); MEAN CORPUSCULAR HGB CONC 34 % (32-36); MEAN CORPUSCULAR VOLUME 92 fL (79.0-98.0); MONOCYTES # (AUTO) 0.5 K/uL (0.0-1.0); MONOCYTES % (AUTO) 8.6 % (1.7-9.3); NEUTROPHILS # (AUTO) 2.8 K/uL (1.8-7.7); NEUTROPHILS % (AUTO) 50.7 % (40.0-70.0); PLATELET COUNT (AUTO) 339 K/uL (130-430); RED BLOOD CELL COUNT(AUTO) 4.24 MIL/uL (4.2-6.2); RED CELL DISTRIBUTION WIDTH 13.1 % (9.0-15.0); WHITE BLOOD COUNT (AUTO) 5.5 K/uL (4.8-10.8)
== END | disposition home or self-care (01) ==
LOC: SLB 11:10
PROVIDERS: ATTEND Internal Medicine
DX: I10 Essential (primary) hypertension (principal); E78.00 Pure hypercholesterolemia, unspecified; R73.9 Hyperglycemia, unspecified; Z79.899 Other long term (current) drug therapy
CPT/HCPCS: 36415; 80053; 80061; 81000-TC; 83036; 85025; 87086

== ENCOUNTER 2019-09-13 05:30 | Day surgery (SDC) | payer OTHER, MEDICARE ==
[~2019-09-13] VITALS: Ht 157.5 cm; Wt 64.0 kg
[2019-09-13] MEDS ORDERED: MIDAZOLAM HCL 5 MG/5 ML VIAL IVP ONE (07:36)
[2019-09-13] MEDS ORDERED: NS IRRIG SOLN 1000 ML IR ONE (07:36)
[2019-09-13] MEDS ORDERED: LR 1,000 ML IV.SOLN IV ONE (07:36)
[2019-09-13] MEDS ORDERED: CEFAZOLIN 1 GM IVPB PREMIX 50 ML IV ONE (07:36)
[2019-09-13] MEDS ORDERED: SEVOFLURANE 15 MIN GAS INH ONE (07:36)
[2019-09-13] MEDS ORDERED: KETOROLAC TROMETHAMINE 30 MG VIAL IVP ONE (07:36)
[2019-09-13] MEDS ORDERED: ROCURONIUM BROMIDE 10 MG/ML (ZEMURON) IV ONE (07:36)
[2019-09-13] MEDS ORDERED: ONDANSETRON HCL 4 MG/2 ML VIAL IVP ONE (07:36)
[2019-09-13] MEDS ORDERED: DEXAMETHASONE SOD PHOSPHATE 4 MG/ML VIAL IVP ONE (07:36)
[2019-09-13] MEDS ORDERED: PROPOFOL 200MG/ 20ML VIAL (DIPRIVAN) IV ONE (07:36)
[2019-09-13] MEDS ORDERED: fentaNYL CITRATE 250 MCG/5 ML AMP IV ONE (07:36)
[2019-09-13] MEDS ORDERED: OXYCODONE/ACETAMINOPHEN 5-325 TABLET PO PRN ×2 (09:15)
[2019-09-13] MEDS ORDERED: ONDANSETRON HCL 4 MG/2 ML VIAL IVP PRN (09:15)
[2019-09-13 10:27] VITALS: BP_SYST 137
[2019-10-01 09:28] LABS: HEMATOCRIT 39.2 % (36-48); HEMOGLOBIN 13.2 g/dL (12.0-16.0); MEAN CORPUSCULAR HEMOGLOBIN 31 pg (27-31); MEAN CORPUSCULAR HGB CONC 34 % (32-36); MEAN CORPUSCULAR VOLUME 92 fL (79.0-98.0); PLATELET COUNT (AUTO) 339 K/uL (130-430); RED BLOOD CELL COUNT(AUTO) 4.24 MIL/uL (4.2-6.2); RED CELL DISTRIBUTION WIDTH 13.1 % (9.0-15.0); WHITE BLOOD COUNT (AUTO) 5.5 K/uL (4.8-10.8)
[2019-10-01 09:30] LABS: BASOPHILS % (AUTO) 0.8 % (0.0-2.0); EOSINOPHILS # (AUTO) 0.2 K/uL (0.0-0.4); LYMPHOCYTES % (AUTO) 35.9 % (20.5-51.5); MONOCYTES # (AUTO) 0.5 K/uL (0.0-1.0); MONOCYTES % (AUTO) 8.6 % (1.7-9.3); NEUTROPHILS # (AUTO) 2.8 K/uL (1.8-7.7); NEUTROPHILS % (AUTO) 50.7 % (40.0-70.0)
[2019-10-01 09:31] LABS: BILIRUBIN,URINE NEGATIVE (NEGATIVE); BLOOD, URINE NEGATIVE (NEGATIVE); CLARITY/URINE CLEAR (CLEAR); COLOR,URINE YELLOW (YELLOW); GLUCOSE,URINE NEGATIVE (NEGATIVE); KETONES,URINE NEGATIVE (NEGATIVE); LEUKOCYTE ESTERASE ,URINE NEGATIVE (NEGATIVE); NITRITE, URINE NEGATIVE (NEGATIVE); PH,URINE 6.5 (5.0-8.0); PROTEIN URINE NEGATIVE (NEGATIVE); UROBILINOGEN,URINE 0.2 (0.2-1.0)
== END 2019-09-13 11:10 | disposition home or self-care (01) ==
LOC: SDS 05:30 → SMU 05:30 → SDS 11:10
PROVIDERS: ATTEND Obstetrics & Gynecology
DX: N95.0 Postmenopausal bleeding (principal); R93.89 Abnormal findings on diagnostic imaging of other specified body structures; N84.0 Polyp of corpus uteri; I10 Essential (primary) hypertension; M19.90 Unspecified osteoarthritis, unspecified site; K21.9 Gastro-esophageal reflux disease without esophagitis; H91.90 Unspecified hearing loss, unspecified ear; E78.00 Pure hypercholesterolemia, unspecified; G89.29 Other chronic pain; Z87.891 Personal history of nicotine dependence; Z88.1 Allergy status to other antibiotic agents; Z80.3 Family history of malignant neoplasm of breast; Z79.899 Other long term (current) drug therapy; Z98.890 Other specified postprocedural states
CPT/HCPCS: 36415; 81003; 85025; 88305; C1819; J0690; J1100; J1885; J2250; J2405; J2704; J3010; J7120

== ENCOUNTER 2020-07-25 15:21 | Outpatient (CLI) | payer OTHER, MEDICARE ==
[2020-07-25 15:49] LABS: BILIRUBIN,URINE NEGATIVE (NEGATIVE); CLARITY/URINE CLEAR (CLEAR); COLOR,URINE YELLOW (YELLOW); GLUCOSE,URINE NEGATIVE (NEGATIVE); KETONES,URINE NEGATIVE (NEGATIVE); LEUKOCYTE ESTERASE ,URINE 2+ (NEGATIVE); NITRITE, URINE NEGATIVE (NEGATIVE); PROTEIN URINE NEGATIVE (NEGATIVE); UROBILINOGEN,URINE 0.2 (0.2-1.0)
[2020-07-25 16:05] LABS: BLOOD, URINE TRACE (NEGATIVE)
[2020-07-25 16:10] LABS: ALANINE AMINOTRANSFERASE 29 U/L (12-78); ANION GAP 5 (5-15); ASPARTATE AMINOTRANSFERASE 21 U/L (10-37); CALCIUM 9.2 mg/dL (8.4-11.0); CHLORIDE 103 mmol/L (98-107); CHOLESTEROL 215 mg/dL (<200); GLUCOSE 98 mg/dL (70-99); HDL CHOLESTEROL 50 mg/dL (>55); LDL CHOLESTEROL 130 mg/dL (<100); POTASSIUM 3.4 mmol/L (3.5-5.1); SODIUM SERUM 137 mmol/L (136-145); TOTAL BILIRUBIN 0.4 mg/dL (0.0-1.0); TRIGLYCERIDES 215 mg/dL (30-150); UREA NITROGEN, BLOOD 27 mg/dL (8-21)
[2020-07-25 16:14] LABS: BACTERIA,URINE FEW /HPF (None Seen); COARSE GRANULAR CASTS,URINE 0-10 /LPF (None Seen); MUCUS,URINE None Seen /LPF (None Seen); RBC,URINE 0-3 /HPF (0-3)
== END 2020-07-26 07:18 | disposition home or self-care (01) ==
LOC: SLB 15:21
PROVIDERS: ATTEND Orthopaedic Surgery
DX: I10 Essential (primary) hypertension (principal); E78.5 Hyperlipidemia, unspecified; Z79.1 Long term (current) use of non-steroidal anti-inflammatories (NSAID); Z79.899 Other long term (current) drug therapy
CPT/HCPCS: 36415; 80053; 80061; 81000-TC; 83051; 87086

== ENCOUNTER 2020-08-11 09:59 | Outpatient (CLI) | payer OTHER, MEDICARE | END 2020-08-11 19:22 | disposition home or self-care (01) | LOC: SLB 09:59 | DX: I10 Essential (primary) hypertension (principal); E78.5 Hyperlipidemia, unspecified; Z79.1 Long term (current) use of non-steroidal anti-inflammatories (NSAID) | CPT/HCPCS: 36415; 82565-TC ==